=== PATIENT | male | born 1945 | race Caucasian/White ===

== ENCOUNTER → 2016-10-12 | Outpatient (CLI) | payer MEDICARE ==
[~2016-10-12] MED LIST: AMLO5 PO; GABA300C3 PO; LIDO5T TOP; LISI-360 PO; PERC5TAB12 PO; ULTR50TA PO; VOLT1GEL4 TOPICAL
[2016-10-12 11:24] LABS: AUTOMATED NEUTROPHIL # 3.3 TH/MM3 (1.8-7.7); BASOPHIL % 0.7 % (0.0-2.0); EOSINOPHIL # 0.1 TH/MM3 (0-0.4); EOSINOPHIL % 2.4 % (0.0-4.0); HEMATOCRIT 42.4 % (39.0-51.0); HEMO FLAGS DIFF FINAL; LYMPH % 27.3 % (9.0-44.0); LYMPHOCYTE # 1.4 TH/MM3 (1.0-4.8); MEAN CELL VOLUME 90.6 FL (80.0-100.0); MEAN CORPUSCULAR HEMOGLOBIN 30.5 PG (27.0-34.0); MEAN CORPUSCULAR HGB CONC 33.7 % (32.0-36.0); MONO % 8.6 % (0.0-8.0); PLATELET COUNT 250 TH/MM3 (150-450); RED BLOOD COUNT 4.68 MIL/MM3 (4.50-5.90); RED CELL DISTRIBUTION WIDTH 12.8 % (11.6-17.2); WHITE BLOOD COUNT 5.2 TH/MM3 (4.0-11.0)
[2016-10-12 12:46] LABS: WESTERGREN SEDIMENTATION RATE 15 mm/hr (0-20)
[2016-10-12 13:15] LABS: HDL CHOLESTEROL 52.3 MG/DL (40.0-60.0); LDL CHOLESTEROL 144 MG/DL (0-99)
== END ==
LOC: OLAB 11:07
PROVIDERS: ATTEND Family Medicine
DX: I10 Essential (primary) hypertension (principal); R51 Headache; E78.5 Hyperlipidemia, unspecified
CPT/HCPCS: 36415; 80061; 85025; 85652; 86140

== ENCOUNTER 2017-01-11 10:39 | Emergency (ER) | payer MEDICARE ==
[~2017-01-11] VITALS: Ht 175.3 cm; Wt 80.0 kg
[2017-01-11 10:41] VITALS: BP 171/77; PULSE 86; RESP 18; TEMP 98.5; O2SAT 98
--- NOTE | 2017-01-11 12:33 | PD ---
HPI Chief Complaint: Injury Time Seen by Provider: 12:20 Travel History International Travel<30 days: No Contact w/Intl Traveler<30days: No Traveled to known affect area: No History of Present Illness HPI This patient complains of pain in the left knee and left thigh. It started when he tripped and fell 8 days ago. He landed on the knee. He has pain with weightbearing. Moderate severity. No alleviating factors. PFSH Past Medical History Musculoskeletal: Yes (L5,S1 hernia disk- cspine troubles, DR. Alla duffy) Past Surgical History Cholecystectomy: Yes Social History Alcohol Use: Yes Tobacco Use: No Substance Use: No Allergies-Medications (Allergen,Severity, Reaction): Coded Allergies: No Known Allergies (Unverified , 04/29/15) Reported Meds & Prescriptions Reported Meds & Active Scripts Active Voltaren (Diclofenac Sodium) 100 Gm Gel..gram. 1 % TOPICAL TID PRN Reported Lisinopril 10 mg (Lisinopril) Unknown Strength Tab Unknown Dose PO DAILY Norvasc (Amlodipine Besylate) Unknown Strength Tab Unknown Dose PO DAILY Percocet 5-325 mg (Oxycodone/Acetaminophen) Oxycodone 5/325 Acetaminophen Tab 1 Tab PO Q4H PRN Review of Systems General / Constitutional: No: Fever Eyes: No: Visual changes HENT: No: Headaches Cardiovascular: No: Chest Pain or Discomfort Respiratory: No: Shortness of Breath Gastrointestinal: No: Abdominal Pain Genitourinary: No: Dysuria Musculoskeletal: Positive: Myalgias, Arthralgias, Pain Skin: No Rash Neurologic: No: Weakness Psychiatric: No: Depression Endocrine: No: Polydipsia Hematologic/Lymphatic: No: Easy Bruising Physical Exam Narrative SKIN: Focused skin assessment reveals no rash or ulcers. Skin is warm and dry. Palpation shows no induration or nodules. Psych: Normal mood and affect. Normal insight and judgment. Left leg: No deformity. No erythema or effusion or bruising of the knee. Good range of motion of joints putting knee and hip. Data Data Last Documented VS Vital Signs Date Time Temp Pulse Resp B/P Pulse Ox O2 Delivery O2 Flow Rate FiO2 01/11/17 10:41 98.5 86 18 171/77 98 Room Air Orders Femur (Ap & Lat/2vws) (01/11/17 ) Knee, Complete (4vws) (01/11/17 ) MDM Medical Decision Making Medical Screen Exam Complete: Yes Emergency Medical Condition: Yes Medical Record Reviewed: Yes Differential Diagnosis Fracture, dislocation, contusion Narrative Course I have reviewed the patient's electronic medical record. I reviewed his left knee x-rays which are normal I reviewed his left femur x-rays which are normal Use Crutches Supportive care discussed Recommend orthopedic follow-up Diagnosis Primary Impression: Soft tissue injury of left knee Qualified Code: S89.92XA - Soft tissue injury of left knee, initial encounter Additional Instructions: Follow-up with orthopedist Med/Other Pt SpecificInfo: Other Disposition: 01 DISCHARGE HOME Condition: Stable Claudio Churchill MD Jan 11, 2017 12:33
--- NOTE | 2017-01-11 14:21 | RADRPT ---
EXAM DATE/TIME: 01/11/2017 13:34 [facility] COMPARISON: No previous studies available for comparison. INDICATIONS : Fall one week ago and started having pain radiate from hip to knee two days later. Pain only weight-b earing. MEDICAL HISTORY : None. SURGICAL HISTORY : None. ENCOUNTER: Initial ACUITY: 1 week PAIN SCORE: 7/10 LOCATION: Left femur FINDINGS: Four views of the left femur demonstrate no fracture or dislocation. Mineralization is within normal limits. No soft tissue abnormality or opaque foreign body is identified. CONCLUSION: No acute abnormality is identified. Zachary Acuña MD on January 11, 2017 at 14:19 Board Certified Radiologist. This report was verified electronically.
--- NOTE | 2017-01-11 14:23 | RADRPT ---
EXAM DATE/TIME: 01/11/2017 13:36 [facility] COMPARISON: No previous studies available for comparison. INDICATIONS : Fall one week ago and started having pain radiate from hip to knee two days later. Pain only weight-b earing. MEDICAL HISTORY : None. SURGICAL HISTORY : None. ENCOUNTER: Initial ACUITY: 1 week PAIN SCORE: 7/10 LOCATION: Left Knee FINDINGS: Four views of the left knee demonstrate no fracture or dislocation. No joint effusion is present. The re is no significant arthropathy and mineralization is within normal limits. No soft tissue abnormali ty or radiopaque foreign body is identified. CONCLUSION: No acute abnormality is identified. Zachary Acuña MD on January 11, 2017 at 14:21 Board Certified Radiologist. This report was verified electronically.
[2017-02-04] MEDS ORDERED: BACI500O9 TOPICAL (14:44)
[2017-02-04] MEDS ORDERED: CEPH-460 PO (14:44)
== END 2017-01-11 15:21 | disposition home or self-care (01) ==
LOC: NEPD 10:39
DX: S89.92XA Unspecified injury of left lower leg, initial encounter (principal); W01.0XXA Fall on same level from slipping, tripping and stumbling without subsequent striking against object, initial encounter
CPT/HCPCS: 73552; 73564; 99283

== ENCOUNTER → 2017-03-23 | Outpatient (CLI) | payer MEDICARE ==
[~2017-03-23] MED LIST changes: +BACI500O9 TOPICAL; +CEPH-460 PO; -GABA300C3 PO; -LIDO5T TOP; -ULTR50TA PO
== END ==
LOC: OLAB 09:54
PROVIDERS: ATTEND Orthopaedic Surgery Orthopaedic Surgery of the Spine
DX: M81.0 Age-related osteoporosis without current pathological fracture (principal)
CPT/HCPCS: 36415; 82306; 84100

== ENCOUNTER → 2017-07-15 | Outpatient (CLI) | payer MEDICARE ==
[~2017-07-15] MED LIST changes: +VOLT1GEL16 TOPICAL; -VOLT1GEL4 TOPICAL
== END ==
LOC: OLAB 10:16
PROVIDERS: ATTEND Podiatrist Foot & Ankle Surgery
DX: M10.071 Idiopathic gout, right ankle and foot (principal)
CPT/HCPCS: 36415; 84550

== ENCOUNTER → 2017-08-26 | Outpatient (CLI) | payer MEDICARE ==
[2017-08-26 10:37] LABS: AUTOMATED NEUTROPHIL # 2.2 TH/MM3 (1.8-7.7); BASOPHIL % 0.7 % (0.0-2.0); EOSINOPHIL # 0.1 TH/MM3 (0-0.4); EOSINOPHIL % 2.8 % (0.0-4.0); HEMATOCRIT 42.9 % (39.0-51.0); HEMOGLOBIN 14.8 GM/DL (13.0-17.0); LYMPH % 33.4 % (9.0-44.0); LYMPHOCYTE # 1.4 TH/MM3 (1.0-4.8); MEAN CELL VOLUME 88.4 FL (80.0-100.0); MEAN CORPUSCULAR HEMOGLOBIN 30.5 PG (27.0-34.0); MEAN CORPUSCULAR HGB CONC 34.5 % (32.0-36.0); MEAN PLATELET VOLUME 6.6 FL (7.0-11.0); MONO % 8.7 % (0.0-8.0); MONOCYTE # 0.4 TH/MM3 (0-0.9); NEUT % 54.4 % (16.0-70.0); PLATELET COUNT 271 TH/MM3 (150-450); RED BLOOD COUNT 4.86 MIL/MM3 (4.50-5.90); RED CELL DISTRIBUTION WIDTH 12.2 % (11.6-17.2); WHITE BLOOD COUNT 4.1 TH/MM3 (4.0-11.0)
[2017-08-26 14:31] LABS: BILIRUBIN, URINE NEG (NEG); BLOOD, URINE NEG (NEG); GLUCOSE,URINE NEG (NEG); KETONE, URINE NEG (NEG); MUCUS URINE FEW /lpf (OCC); NITRITE,URINE NEG (NEG); URINE COLOR YELLOW (YELLW/STRAW); URINE LEUKOCYTE ESTERASE NEG (NEG)
[2017-08-26 14:38] LABS: ALBUMIN 3.8 GM/DL (3.4-5.0); AST (GOT) 13 U/L (15-37); BICARBONATE 28.4 MEQ/L (21.0-32.0); BLOOD UREA NITROGEN 14 MG/DL (7-18); CALCIUM 9.1 MG/DL (8.5-10.1); CHLORIDE 107 MEQ/L (98-107); CHOLESTEROL 205 MG/DL (120-200); CREATININE 0.93 MG/DL (0.60-1.30); GLOMERULAR FILTRATION RATE 79 ML/MIN (>89); GLUCOSE,FASTING 96 MG/DL (74-99); SODIUM (NA) 142 MEQ/L (136-145); TRIGLYCERIDES 117 MG/DL (42-150)
[2017-08-26 14:41] LABS: ALKALINE PHOSPHATASE 72 U/L (45-117); ALT (GPT) 22 U/L (12-78); CHOLESTEROL/ HDL RATIO 4.59 RATIO; HDL CHOLESTEROL 44.6 MG/DL (40.0-60.0); LDL CHOLESTEROL 137 MG/DL (0-99); TOTAL BILIRUBIN ADULT 0.5 MG/DL (0.2-1.0); TOTAL PROTEIN 7.3 GM/DL (6.4-8.2)
== END ==
LOC: OLAB 10:06
PROVIDERS: ATTEND Family Medicine
DX: E78.5 Hyperlipidemia, unspecified (principal)
CPT/HCPCS: 36415; 80053; 80061; 81001; 85025